=== PATIENT | female | born 1935 | race Caucasian/White ===

== ENCOUNTER 2024-01-16 09:28 | Inpatient (IN) | payer MEDICARE, BC, SELFPAY ==
[2024-01-13] VITALS (11 sets, daily range): BP systolic 122–149; BP diastolic 51–73; PULSE 78; O2SAT 95; BMI 27.0
[2024-01-13 12:23] LABS: % Basophils 0.5 % (0-2); % Eosinophils 1.4 % (0-6); % Immature Granulocytes 0.5 % (0-0.5); % Lymphocytes 16.8 % (20.5-51.1); % Monocytes 7.1 % (1.7-9.3); % Neutrophils 73.7 % (42.2-75.2); Absolute Eosinophils 0.1 10^3/uL (0-0.7); Absolute Lymphocytes 1.1 10^3/uL (1.2-3.4); Absolute Monocytes 0.5 10^3/uL (0.1-0.6); Absolute Neutrophils 4.8 10^3/uL (1.4-6.5); Hematocrit 37.3 % (37.0-47.0); Hemoglobin 12.3 g/dL (12.0-16.0); Mean Corpuscular Volume 106.3 fL (81.0-99.0); Mean Platelet Volume 9.1 fL (7.4-10.4); Nucleated Red Blood Cells % 0 %; Platelet Count 329 10^3/uL (130-400); Red Blood Cell Count 3.51 10^6/uL (4.20-5.40); Red Cell Dist. Width 13.7 % (11.5-14.5); White Blood Cell Count 6.5 10^3/uL (4.8-10.8)
[2024-01-13 12:29] LABS: ALT (SGPT) 14 U/L (0-35); AST (SGOT) 25 U/L (14-36); Albumin 3.2 g/dl (3.5-5.0); Alkaline Phosphatase 129 U/L (38-126); Blood Urea Nitrogen 16 mg/dl (7-17); Calcium 8.7 mg/dl (8.4-10.2); Carbon Dioxide 21 mmol/L (22-30); Chloride 115 mmol/L (98-107); Glucose 124 mg/dl (70-99); Potassium 4.3 mmol/L (3.5-5.1); Sodium 141 mmol/L (135-145); Total Bilirubin 0.4 mg/dl (0.2-1.3); Total Protein 6.1 g/dl (6.3-8.2); eGFR > 60.00
--- NOTE | 2024-01-13 16:29 | CM ---
CM following re: d/c planning.
Pt presents to with ambulatory dysfunction.
Per therapy, recs for SNF.
At this time, pt still in work up : xrays, UA, etc.
CM met with daughter and FLORIN.
Pt resides in the home with them.
They state she has been declining over the years, and requires assistance of 1 with transfers and ADLs.
She was at [facility] 1-2 years ago, they state.
They are interested in SNF placement, likely LTC.
They were advised they will have to complete a LTC application.
If insurance approves rehab, she can start off with rehab, then transition to LTC.
Per daughter, she also has LTC insurance.
As limited clinicals at this time, CM will send refs in the AM.
Daughter is agreeable to referrals to [facility], [facility], [facility], and any local SNFs.
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
CM will continue to follow medical course and assist with disposition.
Pt will be admitted, they were informed she will likely be admitted as OBS, although work up pending for now.
--- NOTE | 2024-01-13 16:45 | ED.GENMED ---
History of Present Illness
General
Chief Complaint: Weakness
Source: patient and family
Exam Limitations: none
Time Seen by Provider: 01/13/24 15:11
Nursing documentation reviewed up to this point in time: agreed with
History of Present Illness
History of Present Illness:
88-year-old female with past medical history of dementia, previous PE currently on Eliquis anxiety depression presenting to the emergency department with concerns of weakness. Has had difficulty ambulation at home. Family 7 difficulty caring for
her at home more recently.
Past History
Past History
ED Past Medical History: HTN and Other
ED Past Surgical History: None
Social History
Tobacco: Non-smoker
Alcohol: Occasional
Personal:
Living: with family (daughter)
Review of Systems
Review of Systems
Allergies reviewed?: Yes
All Other Systems: ROS reviewed and negative except as documented in HPI and ROS
Phy Exam
Physical Exam
Physical Exam:
GENERAL: Alert , in no apparent distress
EYE: pupils equal and reactive
NECK: Supple, no significant adenopathy.
ENT: o/p clr, mmm.
CARDIAC: Regular rate and rhythm .
LUNGS: Clear breath sounds bilaterally, no acute respiratory distress, no wheezes/rales/rhonchi
ABDOMEN: Soft, without focal tenderness, no r/g, no cvat
NEUROLOGICAL: Alert moving all extremities somewhat confused
SKIN: Warm and dry, skin intact.
MUSCULOSKELETAL: No edema, well perfused.
PSYCH: Normal and appropriate interaction.
Course
Orders/Labs/Results
Orders:
Orders
01/13/24 12:01
EKG [Electrocardiogram (*1)] Urgent
Reason for Study: Fatigue / Weakness
01/13/24 12:02
EKG- Treatment ONCE
01/13/24 12:07
CMP [Comprehensive Metabolic Panel] Urgent
Complete Blood Count/With Diff Urgent
01/13/24 15:28
Case Management Consult ONCE
Case Management Consult: Custodial Placement
Urinalysis Reflex To Culture Urgent
Pt Eval And Treat Urgent
Activity Level: Ambulate
01/13/24 15:54
Hips, Bilat 2 View W/AP Pelvis [CR Hips RDAHA w/wo Pel 2 Vw] Urgent
Comment:
Reason For Exam: hip leg pain
Include a pelvis x-ray?: Yes
Knee, Left 4 or More Views [CR Knee - Left 4 Or More View*] Urgent
Comment:
Reason For Exam: knee pain after fall
Knee, Right 4 or More Views [CR Knee- Right 4 Or More View*] Urgent
Comment:
Reason For Exam: knee pain after fall
Abnormal Lab Results
01/13/24
12:07
RBC 3.51 L 10^6/uL
(4.20-5.40)
MCV 106.3 H fL
(81.0-99.0)
MCH 35.0 H pg
(27.0-31.0)
Absolute Lymphs (auto) 1.1 L 10^3/uL
(1.2-3.4)
Lymphocytes % 16.8 L %
(20.5-51.1)
Chloride 115 H mmol/L
(98-107)
Carbon Dioxide 21 L mmol/L
(22-30)
Glucose 124 H mg/dl
(70-99)
Alkaline Phosphatase 129 H U/L
(38-126)
Total Protein 6.1 L g/dl
(6.3-8.2)
Albumin 3.2 L g/dl
(3.5-5.0)
01/13/24 12:07
01/13/24 12:07
Vital Signs
Initial and Last Documented VS:
Initial Vital Signs
Temp Pulse Resp Pulse Ox
98.3 F 102 18 96
01/13/24 12:06 01/13/24 12:06 01/13/24 12:06 01/13/24 12:06
Last Documented Vital Signs
Temp Pulse Resp BP Pulse Ox
98.3 F 81 15 139/73 95
01/13/24 12:06 01/13/24 17:18 01/13/24 12:14 01/13/24 17:18 01/13/24 17:18
MDM/Problems Addressed
MDM/Problems Addressed:
88-year-old female presenting to the emergency department with concerns of worsening generalized weakness fatigue over the past few weeks family is having difficulty caring for her at home considering her increased difficulty with ambulation. Labs
obtained here without significant acute abnormalities. X-rays without emergent findings though there is significant arthritis. Physical therapy saw the patient who had significant difficulty ambulating recommending placement. Patient will be
admitted for further treatment and potential placement.
*Critical Care Note
Total Time (30-74mins, 75-104mins- exclusive of procedures): Not Applicable
ED Attending Note
-
Portions of this chart may have been created with voice recognition software.� Occasional wrong word or��sound alike� substitutions may have occurred due to the inherent limitations of voice recognition software.
Discharge Plan
Departure
Patient Disposition: Admit
Date of Disposition: 01/13/24
Time of Disposition: 18:21
Admit to: Med/Surg
Admit to doctor: Elieser
Presentation/result/management discussed w/ accepting MD/DO: Hospitalist
Patient with high blood pressure during this ER visit?: No
Condition: Good
Covid-19: Not Applicable
Discharge Problem:
Ambulatory dysfunction
Prescriptions:
No Action
ferrous sulfate 325 MG tablet,delayed release (DR/EC)
325 mg PO MOWEFR
pantoprazole 40 MG tablet,delayed release (DR/EC)
40 mg PO BID Qty: 60 0RF
acetaminophen 650 mg Tablet Extended Release
650 mg PO BID
cyanocobalamin (vitamin B-12) [Vitamin B-12] 500 mcg Tablet
500 mcg PO DAILY
calcium carbonate 500 mg calcium (1,250 mg) Tablet
500 mg PO HS
docusate sodium 100 mg Tablet
100 mg PO BID
guaifenesin 400 mg Tablet
400 mg PO BID
Eliquis 5 mg Tablet
5 mg PO BID
ascorbic acid (vitamin C) [Vitamin C] 500 MG tablet
500 mg PO MOWEFR
Rx Instructions:
Take 1,000 mg twice a day for 14 days
baclofen 10 mg Tablet
2.5 mg PO BID Qty: 60 0RF
cephalexin 250 mg capsule
250 mg PO Q8H 7 Days Qty: 21 0RF
Referrals:
Ryan Acharya, DO [Family Provider] -
Interventions
Interventions:
*Risk Screen - Suicide Last Done: 01/13/24 12:04
*General Assessment Last Done: 01/13/24 12:09
*Neglect/Abuse Screening Last Done: 01/13/24 12:04
ED- Fall Risk Assessment Last Done: 01/13/24 12:04
*ED COVID-19 Vaccine History Last Done: 01/13/24 12:09
ED- Cardiac Assessment Last Done: 01/13/24 16:09
ED- Neurological Assessment Last Done: 01/13/24 16:09
ED- Pulmonary Assessment Last Done: 01/13/24 16:09
Discharge Date and Time
Print Language: EMIRATI
--- NOTE | 2024-01-13 18:40 | HPS.HSE ---
Addendum entered and electronically signed by Neeta Hart DO 01/13/24 19:44:
The patient is personally seen and examined. I have discussed the patient with Brooklynn, reviewed her history and physical, and agree with her history and physical and assessment and plan of care as per below. She was lowered to the ground, no acute
injury noted, no LOC, no head injury. Baseline mentation.
VSS, AF
PE: Awake, alert, no focal neurological deficits, Heart is RRR, no m/r/g, Lungs CTA b/l no w/r/r
Awaiting official report for Xray hip and knees
Assessment and plan of care as per below-
Ambulatory dysfunction/FTT
-PT eval
-CM consultation for placement
Original Note:
Family Physician
-
Family Physician: Ryan Acharya
Chief Complaint
-
Weakness
History of Present Illness
Patient is an 88 y/o female past medical history of dementia, pulmonary embolism and hypertension who presents with weakness. Additional history is obtained from patient's daughter. Patient had a incident about a week ago where she nelda as though
she was going to fall and the daughter had to lower her to ground. Patient seemed to be able to baseline, but over the past few days patient has been having trouble ambulating again. Daughter notes they are having to help her get off the toilet.
Patient has been complaining about intermittent knee pain. Family notes they are no longer able to care for patient at home.
Medical History
Past Medical History
Past Medical History: Reports Other
Additional Past Medical History:
Essential Hypertension
Pulmonary Embolism in November 2020
Anemia
GI Bleed
Dementia
Past Surgical History: Reports Other
Additional Past Surgical History:
Hemorrhoidectomy
Social History
Tobacco: Non-smoker
Living: With Family
Family History
Family History: Not pertinent
Allergies / Home Medications
Allergies reflects when Allergies were last updated in [facility].
Home Medications with original date entered in [facility]
Allergy/Medication List:
Allergies
Allergy/AdvReac Type Severity Reaction Status Date / Time
No Known Allergies Allergy Verified 02/05/22 10:29
Home Medications
ferrous sulfate 325 mg (65 mg iron) tablet,delayed release 325 mg PO MOWEFR Supplement 12/02/20
acetaminophen 650 mg tablet,extended release 1,300 mg PO BID Pain 02/05/22
apixaban 5 mg tablet (Eliquis) 2.5 mg PO BID Blood clot prevention/tx 02/05/22
ascorbic acid (vitamin C) 500 mg tablet (Vitamin C) 1,000 mg PO DAILY Supplement 02/05/22
calcium carbonate 500 mg PO HS Supplement 02/05/22
cyanocobalamin (vitamin B-12) 500 mcg tablet (Vitamin B-12) 2,500 mcg PO DAILY Supplement 02/05/22
docusate sodium 100 mg tablet 100 mg PO HS Constipation 02/05/22
baclofen 5 mg tablet 2.5 mg PO BID 01/13/24
glucosamine sulf dipot chlr,msm,chond 550 mg-C 30 mg-layla 1 mg capsule (Glucosamine Chondroitin) 2 cap PO DAILY 01/13/24
pantoprazole 40 mg tablet,delayed release 40 mg PO HS 01/13/24
sertraline 50 mg tablet 50 mg PO HS 01/13/24
zinc sulfate 50 mg zinc (220 mg) tablet 50 mg PO DAILY 01/13/24
Review of Systems
-
Unable to obtain full review of systems at this time due to: Dementia
Physical Exam
Vital Signs
Vital Signs
Temp Pulse Resp BP Pulse Ox
98.3 F 81 15 139/73 95
01/13/24 12:06 01/13/24 17:18 01/13/24 12:14 01/13/24 17:18 01/13/24 17:18
Physical Exam
General: Comfortable and Conversant
HEENT: Anicteric and Moist mucous membranes
Respiratory: Clear and Non Labored Respirations
Cardiac: S1/S2 and Regular Rhythm
GI: Soft and Non Tender
Rectal: Deferred by Provider
Musculoskeletal: No Clubbing, No Cyanosis and No Edema
Skin: Warm and Dry
Neuro: Awake, Alert and Nonfocal/grossly intact
Psych: Calm
Laboratory Results
-
01/13/24 12:07
01/13/24 12:07
Laboratory Results
Total Bilirubin 0.4 mg/dl (0.2-1.3) 01/13/24 12:07
AST 25 U/L (14-36) 01/13/24 12:07
ALT 14 U/L (0-35) 01/13/24 12:07
Alkaline Phosphatase 129 U/L (38-126) H 01/13/24 12:07
Data Reviewed
-
Diagnostic Radiology: Image Personally Visualized and interpreted (Bilateral Knee and Hip X-Rays show extensive arthritis, official reports are still pending)
Lab Data: Labs Reviewed by me
Impression/Plan
-
Ambulatory Dysfunction
-Consult PT/OT
-Patient will likely require placement in SNF for short term rehab and possible transition to LTC
Constipation
-Increase bowel regimen Senna-S 2 tabs BID
Anxiety
-Daughter reports increasing anxiety recently. Patient previously started on sertraline with initial improved, and daughter is asking if dose can be increased
-Increase sertraline 75mg Daily
Hx Pulmonary Embolism in November 2020
-Continue Eliquis
Anemia
-Hgb within normal range
-Continue vitamin b12 and ferrous sulfate
Hx GI Bleed
-Continue Protonix
DVT Proph: Eliquis
Code Status: DNR confirmed with patient's daughter at time of admission
--- NOTE | 2024-01-13 20:29 | PTCARENOTE ---
Receive pt from ER. Pt alert oriented 3, but forgetful. Pt pulled over from the stretcher to her bed. Pt screams when touched or turned, otherwise cooperative. Pt oriented to the room, call calixto within reach. VSS (T=98, HR=86, RR=20, RP=626/67,
SpO2=96% on RA). Pt presents with 2 open wouds to her B/L groins area. Pt denies pain, but admits to weakness to B/L legs. Pt repositioned and resting comfortably in her bed.
[2024-01-13] MEDS: LIORESAL 2.5 MG PO (21:33)
[2024-01-13] MEDS: TYLENOL 650 MG PO (21:34)
[2024-01-13] MEDS: SENOKOT-S 2 TABLET PO (21:34)
[2024-01-13] MEDS: ZOLOFT 75 MG PO (21:35)
[2024-01-13] MEDS: OSCAL CAL 500 500 MG PO (21:35)
[2024-01-13] MEDS: PROTONIX 40 MG PO (21:35)
[2024-01-13] MEDS: ELIQUIS 2.5 MG PO (21:39)
[2024-01-14] MEDS: TYLENOL PO ×2 (02:20→19:51)
[2024-01-14 07:40] VITALS: BP 140/60
[2024-01-14] MEDS: ZINC SULFATE 220 MG PO (09:31)
[2024-01-14] MEDS: SENOKOT-S 2 TABLET PO (09:31)
[2024-01-14] MEDS: VITAMIN C 1000 MG PO (09:32)
[2024-01-14] MEDS: ELIQUIS 2.5 MG PO ×2 (09:32→19:52)
[2024-01-14] MEDS: FEOSOL 325 MG PO (09:32)
[2024-01-14] MEDS: LIORESAL 2.5 MG PO ×2 (09:32→19:52)
[2024-01-14] MEDS: VITAMIN B-12 2500 MCG PO (09:32)
[2024-01-14] MEDS: TYLENOL 650 MG PO ×2 (09:32→14:08)
[2024-01-14 10:15] VITALS: BP 132/73; PULSE 89; O2SAT 96
--- NOTE | 2024-01-14 11:00 | CM ---
CM received consult for discharge planning. CM spoke with Valery from [facility], confirmed patient qualifies for [facility] waiver program. CM spoke with patients daughter, Fadumo, over the phone. Fadumo reports patient resides with her and her , Lynn
sister also provided support to patient. Fadumo reports patient was able to ambulate with walker, as of lately patient only able to feed self, otherwise Fadumo does everything for patient. Fadumo reports patient will likely need LTC after rehab, CM
discussed patient qualifies for MSS program , certain SNF accept this program, will send referrals in [facility]. CM discussed facilities will likely need to see LTC application, daughter aware. Daughter reports she works at at the Pharmacy.
Daughter reports they would like a facility closer to [place], report patient has been to [facility] in past. CM discussed HOBBS with daughter, daughter aware of observation status, documented and placed in patients chart. Daughter confirmed
patient PCP Ryan Wong, [facility] in [place]. CM will continue to follow for all discharge planning needs.
Plan; SNF/LTC, pending accepting facility.
[2024-01-14 11:14] VITALS: BP 140/73; PULSE 91; O2SAT 94
[2024-01-14 13:32] LABS: Urine Albumin Trace (Neg - Trace); Urine Bilirubin 1+ (Negative); Urine Character Very Cloudy (Clear); Urine Color Brown; Urine Glucose Negative (Negative); Urine Ketone Trace (Negative); Urine Leukocyte 2+ (Negative); Urine Nitrite Positive (Negative); Urine Occult Blood 3+ (Negative); Urine Urobilinogen 4+ (Neg - 1+)
[2024-01-14 13:49] LABS: Urine Bacteria Many (Negative); Urine White Cell 26-30 /HPF (0-5)
--- NOTE | 2024-01-14 15:36 | WOUNDNOTE ---
R PLANTAR 1ST MTH
--- NOTE | 2024-01-14 15:39 | WOUNDNOTE ---
WO RN note: Patient admitted with ambulation dysfunction. Patient's family unable to care for patient. SNF placement planned.
See H&P for complete history.
PMH: dementia, PE (Eliquis), HTN, GI bleed, constipation, ambulation dysfunction, obesity.
Wound Location and type/assessment: Patient admitted with: R plantar 1st MTH black callus. Sacral small stage 2 sacral pressure injury. Buttocks santos discolored dull red/purple (blanchable). Bilateral groin deep dermal vs to subcutaneous ulcers d/t
moisture.
Appetite: fair-good.
Pressure redistribution devices in place: [employer] air bed. Patient cannot turn self in bed.
Plan: Patient incontinent of urine. Santos care and patient turned to R semi side lying position with help from TABBY Barney. Heels off bed with pillow. Silicone border foam changed on sacrum. Local care given bilateral groin wounds.
Will confirm orders with Dr. North and updated CECILIA Costa.
Care plan to be updated and will follow as needed.
Note to case management of equipment requested for discharge: Air mattress recommended at SNF.
Recommend follow up at wound care center upon discharge.
[2024-01-14 15:40] VITALS: BP 122/57
--- NOTE | 2024-01-14 15:40 | WOUNDNOTE ---
WO RN note: Patient admitted with ambulation dysfunction. Patient's family unable to care for patient. SNF placement planned.
See H&P for complete history.
PMH: dementia, PE (Eliquis), HTN, GI bleed, constipation, ambulation dysfunction, obesity.
Wound Location and type/assessment: Patient admitted with: R plantar 1st MTH black callus. Sacral small stage 2 sacral pressure injury. Buttocks santos discolored dull red/purple (blanchable). Bilateral groin deep dermal vs to subcutaneous ulcers d/t
moisture.
Appetite: fair-good.
Pressure redistribution devices in place: [employer] air bed. Patient cannot turn self in bed.
Plan: Patient incontinent of urine. Santos care and patient turned to R semi side lying position with help from MARIBELL Kc. Heels off bed with pillow. Silicone border foam changed on sacrum. Local care given bilateral groin wounds.
Will confirm orders with Dr. North and updated CECILIA Costa.
Care plan to be updated and will follow as needed.
Note to case management of equipment requested for discharge: Air mattress recommended at SNF.
Recommend follow up at wound care center upon discharge.
--- NOTE | 2024-01-14 16:46 | W.PN.HOSP.TC ---
Today's Communication/Plan
-
start Rocephin
Assessment / Plan
Assessment / Plan
Ambulatory Dysfunction
-Consult PT/OT
-Patient will likely require placement in SNF for short term rehab and possible transition to LTC
Remains weak
UTI
UA changes are consistent with UTI and could be a major contributor for patient's overwhelming weakness, even with nl WBC
will start Rocephin pending Ur C&S
Constipation
-Increase bowel regimen Senna-S 2 tabs BID
Anxiety
-Daughter reports increasing anxiety recently. Patient previously started on sertraline with initial improved, and daughter is asking if dose can be increased
-Increase sertraline 75mg Daily
Hx Pulmonary Embolism in November 2020
-Continue Eliquis
Anemia
-Hgb within normal range
-Continue vitamin b12 and ferrous sulfate
Hx GI Bleed
-Continue Protonix
DVT Proph: Eliquis
Code Status: DNR confirmed with patient's daughter at time of admission
With probable UTI and metabolic changes (profound weakness, will change to full admit)
Anticipated Discharge: > 48 hours
Subjective/Interval History
-
Date of Service: January 14, 2024
Remains weak
Objective Data
-
Vital Signs:
Vital Signs
Temp Pulse Resp BP Pulse Ox
98.7 F 94 20 122/57 96
01/14/24 15:40 01/14/24 15:40 01/14/24 15:40 01/14/24 15:40 01/14/24 15:40
Review of Systems
-
History Source: Patient
Constitutional: Reports No Symptoms; Denies Fever
Respiratory: Reports No Symptoms
Cardiac: Reports No Symptoms
Abdomen/GI: Reports No Symptoms
Genitourinary: Reports No Symptoms
Musculoskeletal: Reports Arthralgias
Skin: Reports Rash (cellulitis much improved)
Neuro: Reports No Symptoms
Physical Exam
-
General: Well Developed, Well Nourished, No Apparent Distress and Appears Chronically Ill
HEENT: Normocephalic, Atraumatic and Moist Mucous Membranes
Respiratory: Clear to Auscultation; Negative Wheezes, Rales or Rhonchi
Cardiac: Regular Rhythm and S1/S2
GI: Soft, Nontender and Nondistended
Musculoskeletal: No Clubbing, No Cyanosis, No Edema and Other (left leg retraction less pronounced)
Skin: Rash (cellulitis improved)
Neuro: Awake and Alert
Psych: Calm
[2024-01-14] MEDS: ROCEPHIN 1000 MG IV (17:57)
[2024-01-14] MEDS: STERILE WATER FOR INJECTION 10 ML IV (17:57)
[2024-01-14] MEDS: ANTIFUNGAL CLEAR 1 APPLIC TOPICAL (19:51)
[2024-01-14] MEDS: SENOKOT-S PO (19:53)
[2024-01-14] MEDS: OSCAL CAL 500 500 MG PO (21:39)
[2024-01-14] MEDS: ZOLOFT 75 MG PO (21:39)
[2024-01-14] MEDS: PROTONIX 40 MG PO (21:39)
[2024-01-14 23:22] VITALS: BP 138/74
[2024-01-15] MEDS: TYLENOL PO (02:31)
[2024-01-15 07:00] VITALS: BP 159/79
--- NOTE | 2024-01-15 07:34 | W.PN.HOSP.TC ---
Today's Communication/Plan
-
PT OT. Antibiotics. Discharge planning in progress
Assessment / Plan
Assessment / Plan
Physical exam:
General: Appears chronically ill.
HEENT: Normocephalic, Atraumatic and Moist Mucous Membranes
Respiratory: Clear to Auscultation; Negative Wheezes, Rales or Rhonchi
Cardiac: Regular Rhythm and S1/S2, no murmurs rubs or gallops
GI: Soft, Nontender and Nondistended
Musculoskeletal: Decreased range of motion of both knees but no warmth erythema. Mild tenderness on her right knee. No tenderness in both hips area. No Clubbing, No Cyanosis. Mild edema in lower extremities
Neuro: Awake, Alert and Oriented, no neurological deficits, generalized weakness present.
Psych: Calm
A/P:
Ambulatory Dysfunction
-Suspect some degree of osteoarthritis contributing to her ambulatory dysfunction
-CT of the head unremarkable as well as knee x-ray and hip x-ray although findings of OA.
-Consult PT/OT and PT recommended long-term care and OT recommended skilled rehab.
-Patient will likely require placement in SNF for short term rehab and possible transition to LTC
Remains weak
-Physician advisor reviewing her case to see if she qualifies for inpatient
-Case management for discharge disposition
Probable UTI:
UA is abnormal but unclear if symptomatic and how much contributing quite frankly.
Continue with IV Rocephin and follow-up cultures-culture results pending
Normal WBC and afebrile so far
Constipation
-Continue increased bowel regimen Senna-S 2 tabs BID
Anxiety
-Daughter reports increasing anxiety recently. Patient previously started on sertraline with initial improved, and daughter is asking if dose can be increased to Dr. North and he increased doses as below.
-Increased sertraline 75mg Daily
Hx Pulmonary Embolism in November 2020
-Continue Eliquis
Anemia
-Hgb within normal range--> latest hemoglobin 11.3
-Continue vitamin b12 and ferrous sulfate
Hx GI Bleed
-Continue Protonix
DVT Proph: Eliquis
Code Status: DNR
Anticipated Discharge: 24 - 48 hours
Subjective/Interval History
-
Date of Service: January 15, 2024
Patient with generalized weakness and pain in bilateral knees. No erythema on her knees. Afebrile.
Objective Data
-
Labs:
Laboratory Results
01/15/24
06:00
WBC Pending
Hgb Pending
Hct Pending
Plt Count Pending
Sodium Pending
Potassium Pending
Chloride Pending
Carbon Dioxide Pending
BUN Pending
Creatinine Pending
Glucose Pending
Calcium Pending
Vital Signs:
Vital Signs
Temp Pulse Resp BP Pulse Ox
97.9 F 90 18 138/74 96
01/14/24 23:22 01/14/24 23:22 01/14/24 23:22 01/14/24 23:22 01/14/24 23:22
I&O
01/14/24 01/15/24 01/16/24
06:59 06:59 06:59
Intake Total 120 / 120
Balance 120 / 120
[2024-01-15 09:07] LABS: % Basophils 0.4 % (0-2); % Eosinophils 2.1 % (0-6); % Immature Granulocytes 0.4 % (0-0.5); % Lymphocytes 22.5 % (20.5-51.1); % Monocytes 8.6 % (1.7-9.3); Absolute Eosinophils 0.1 10^3/uL (0-0.7); Absolute Lymphocytes 1.2 10^3/uL (1.2-3.4); Absolute Monocytes 0.5 10^3/uL (0.1-0.6); Absolute Neutrophils 3.5 10^3/uL (1.4-6.5); Hematocrit 33.3 % (37.0-47.0); Hemoglobin 11.3 g/dL (12.0-16.0); Mean Corp Hgb Conc. 33.9 g/dL (33.0-37.0); Mean Corpuscular Hgb 34.8 pg (27.0-31.0); Mean Corpuscular Volume 102.5 fL (81.0-99.0); Mean Platelet Volume 9.2 fL (7.4-10.4); Nucleated Red Blood Cells % 0 %; Platelet Count 297 10^3/uL (130-400); Red Blood Cell Count 3.25 10^6/uL (4.20-5.40); Red Cell Dist. Width 13.1 % (11.5-14.5); White Blood Cell Count 5.2 10^3/uL (4.8-10.8)
[2024-01-15 09:25] LABS: Blood Urea Nitrogen 11 mg/dl (7-17); Calcium 8.5 mg/dl (8.4-10.2); Carbon Dioxide 22 mmol/L (22-30); Chloride 114 mmol/L (98-107); Estimated Creatinine Clearance 43 ml/min; Glucose 93 mg/dl (70-99); Potassium 3.6 mmol/L (3.5-5.1); Sodium 141 mmol/L (135-145); eGFR > 60.00
[2024-01-15] MEDS: SENOKOT-S 2 TABLET PO ×2 (09:48→20:29)
[2024-01-15] MEDS: ANTIFUNGAL CLEAR 1 APPLIC TOPICAL ×2 (09:48→20:28)
[2024-01-15] MEDS: VITAMIN C 1000 MG PO (09:49)
[2024-01-15] MEDS: VITAMIN B-12 2500 MCG PO (09:49)
[2024-01-15] MEDS: ELIQUIS 2.5 MG PO ×2 (09:50→20:29)
[2024-01-15] MEDS: TYLENOL 650 MG PO ×3 (09:50→20:30)
[2024-01-15] MEDS: LIORESAL 2.5 MG PO ×2 (09:50→20:29)
[2024-01-15] MEDS: ZINC SULFATE 220 MG PO (09:51)
[2024-01-15 15:43] VITALS: BP 156/77
--- NOTE | 2024-01-15 16:10 | PTCARENOTE ---
Pt awake and alert, oriented to self/place/birthdate; confused conversation at times/forgetful; [place]. Pleasant and cooperative. [place]; legs weak; does not assist with positioning. Occ tremors of arms/lower face noted. VSS. On room air- pulse ox
96%, no c/o SOB. Abd obese, soft, faheem PO; appetite poor; incont loose brown/green stool; Dr. Connors aware. Incont large amts urine. Bilat groin dsgs/[place] ointment intact. Resting in bed at present; no c/o. Will continue to monitor
[2024-01-15] MEDS: STERILE WATER FOR INJECTION 10 ML IV (17:38)
[2024-01-15] MEDS: ROCEPHIN 1000 MG IV (17:39)
[2024-01-15] MEDS: PROTONIX 40 MG PO (21:51)
[2024-01-15] MEDS: OSCAL CAL 500 500 MG PO (21:51)
[2024-01-15] MEDS: ZOLOFT 75 MG PO (21:51)
[2024-01-15 23:29] VITALS: BP 115/55
[2024-01-16] MEDS: TYLENOL 650 MG PO ×3 (03:07→20:21)
[2024-01-16 07:49] VITALS: BP 126/64
[2024-01-16] MEDS: SENOKOT-S 2 TABLET PO ×2 (08:53→20:22)
[2024-01-16] MEDS: FEOSOL 325 MG PO (08:53)
[2024-01-16] MEDS: ZINC SULFATE 220 MG PO (08:53)
[2024-01-16] MEDS: VITAMIN B-12 2500 MCG PO (08:53)
[2024-01-16] MEDS: LIORESAL 2.5 MG PO ×2 (08:53→20:21)
[2024-01-16] MEDS: ELIQUIS 2.5 MG PO ×2 (08:53→20:22)
[2024-01-16] MEDS: VITAMIN C 1000 MG PO (08:54)
[2024-01-16] MEDS: ANTIFUNGAL CLEAR 1 APPLIC TOPICAL ×2 (09:01→20:23)
--- NOTE | 2024-01-16 11:48 | W.PN.HOSP.TC ---
Today's Communication/Plan
-
Monitor vitals
see plan
Pain control
Change antibiotic to cefdinir for 1 more day
PT/OT
trial of lidocaine cream
Discussed with daughter over the phone
Discharge planning
Assessment / Plan
Assessment / Plan
Physical exam:
General: Appears chronically ill.
HEENT: Normocephalic, Atraumatic and Moist Mucous Membranes
Respiratory: Clear to Auscultation; Negative Wheezes, Rales or Rhonchi
Cardiac: Regular Rhythm and S1/S2, no murmurs rubs or gallops
GI: Soft, Nontender and Nondistended
Musculoskeletal: Decreased range of motion of both knees but no warmth erythema. Mild tenderness on her right knee. No tenderness in both hips area. No Clubbing, No Cyanosis. Mild edema in lower extremities
Neuro: Awake, Alert and Oriented, no neurological deficits, generalized weakness present.
Psych: Calm
A/P:
Ambulatory Dysfunction
-Suspect some degree of osteoarthritis contributing to her ambulatory dysfunction
-CT of the head unremarkable as well as knee x-ray and hip x-ray although findings of OA.
-Consult PT/OT and PT recommended long-term care and OT recommended skilled rehab.
-Patient will likely require placement in SNF for short term rehab and possible transition to LTC
Remains weak
-Case management for discharge disposition
mild hospital-acquired delirium
Monitor; improving
Probable UTI:
UA is abnormal; will treat for total 3 days
change to cefdinir for 1 day
was on rocephin
Constipation
-Continue increased bowel regimen Senna-S 2 tabs BID
Anxiety
-Daughter reports increasing anxiety recently. Patient previously started on sertraline with initial improved, and daughter is asking if dose can be increased to Dr. North and he increased doses as below.
-Increased sertraline 75mg Daily
Hx Pulmonary Embolism in November 2020
-Continue Eliquis
Anemia
-Hgb within normal range
-Continue vitamin b12 and ferrous sulfate
Hx GI Bleed
-Continue Protonix
DVT Proph: Eliquis
Code Status: DNR
PT/OT rec SNF
Anticipated Discharge: Today
Subjective/Interval History
-
Date of Service: January 16, 2024
denies nausea
Objective Data
-
Vital Signs:
Vital Signs
Temp Pulse Resp BP Pulse Ox
97.7 F 94 20 126/64 95
01/16/24 07:49 01/16/24 07:49 01/16/24 07:49 01/16/24 07:49 01/16/24 08:30
I&O
01/15/24 01/16/24 01/17/24
06:59 06:59 06:59
Intake Total 120 / 120 720 / 720
Balance 120 / 120 720 / 720
[2024-01-16] MEDS: LMX 4 1 APPLIC TOPICAL (12:56)
[2024-01-16] MEDS: OMNICEF 300 MG PO ×2 (12:59→20:22)
[2024-01-16] MEDS: TYLENOL PO (13:09)
--- NOTE | 2024-01-16 14:31 | CM ---
CM spoke with patients daughter, Fadumo, discussed patient switched to inpatient status. CM discussed patient medically stable for discharge, daughter looking into [facility] and [facility], [facility] no longer has a bed.
Patient qualifies for [facility] waiver program. CM awaiting return call from daughter regarding SNF. CM will continue to follow for all discharge planning needs.
Plan; SNF pending accepting facility.
[2024-01-16 15:13] VITALS: BP 104/67
--- NOTE | 2024-01-16 16:11 | WOUNDNOTE ---
WOC RN note: nato Real re: recommend air mattress at SNF. She has a small stage 2 sacral pressure injury.
[2024-01-16] MEDS: ZOLOFT 75 MG PO (20:21)
[2024-01-16] MEDS: OSCAL CAL 500 500 MG PO (20:21)
[2024-01-16] MEDS: PROTONIX 40 MG PO (20:21)
[2024-01-16 23:56] VITALS: BP 128/70
[2024-01-17] MEDS: TYLENOL 650 MG PO ×4 (01:38→20:17)
[2024-01-17 07:50] VITALS: BP 132/70
[2024-01-17 08:07] LABS: % Basophils 0.4 % (0-2); % Eosinophils 2.8 % (0-6); % Immature Granulocytes 0.2 % (0-0.5); % Lymphocytes 30.2 % (20.5-51.1); % Monocytes 9.2 % (1.7-9.3); % Neutrophils 57.2 % (42.2-75.2); Absolute Eosinophils 0.1 10^3/uL (0-0.7); Absolute Lymphocytes 1.4 10^3/uL (1.2-3.4); Absolute Monocytes 0.4 10^3/uL (0.1-0.6); Absolute Neutrophils 2.7 10^3/uL (1.4-6.5); Hematocrit 32.4 % (37.0-47.0); Hemoglobin 10.9 g/dL (12.0-16.0); Mean Corp Hgb Conc. 33.6 g/dL (33.0-37.0); Mean Corpuscular Hgb 35.2 pg (27.0-31.0); Mean Corpuscular Volume 104.5 fL (81.0-99.0); Mean Platelet Volume 9.1 fL (7.4-10.4); Nucleated Red Blood Cells % 0 %; Platelet Count 271 10^3/uL (130-400); Red Cell Dist. Width 13.4 % (11.5-14.5); White Blood Cell Count 4.7 10^3/uL (4.8-10.8)
[2024-01-17 08:30] LABS: Blood Urea Nitrogen 16 mg/dl (7-17); Calcium 8.3 mg/dl (8.4-10.2); Carbon Dioxide 25 mmol/L (22-30); Chloride 113 mmol/L (98-107); Estimated Creatinine Clearance 43 ml/min; Glucose 88 mg/dl (70-99); Potassium 3.5 mmol/L (3.5-5.1); Sodium 141 mmol/L (135-145); eGFR > 60.00
[2024-01-17] MEDS: VITAMIN B-12 2500 MCG PO (08:43)
[2024-01-17] MEDS: ELIQUIS 2.5 MG PO ×2 (08:44→20:16)
[2024-01-17] MEDS: SENOKOT-S 2 TABLET PO (08:44)
[2024-01-17] MEDS: ZINC SULFATE 220 MG PO (08:44)
[2024-01-17] MEDS: VITAMIN C 1000 MG PO (08:45)
[2024-01-17] MEDS: LIORESAL 2.5 MG PO ×2 (08:45→20:16)
[2024-01-17] MEDS: ANTIFUNGAL CLEAR 1 APPLIC TOPICAL ×2 (08:48→20:16)
--- NOTE | 2024-01-17 10:54 | PN.CDI ---
CDI
- -
CDI:
Physician Documentation Request
Admit Date: 01/16/24 09:28
Dear Doctor Bryn,
Patient admitted with ambulatory dysfunction.
01/13 Wound care note: 'Sacral small stage 2 sacral pressure injury. '
Physician documentation of the type and location of wounds is required for compliant documentation. Based on the above clinical findings and your assessment, please provide the following in your progress note:
1. Location of the ulcer/wound, including laterality.
2. Type (etiology) of ulcer/wound:
- Diabetic ulcer
- Arterial (ischemic) ulcer
- Traumatic wound
- Venous stasis ulcer
- Pressure (decubitus) ulcer
- Non-healing surgical wound
- Other
- Unable to determine
3. For a non-pressure ulcer, please indicate the depth/severity:
- Limited to the breakdown of skin
- With fat layer exposed
- With necrosis of muscle
- With necrosis of bone
- Other
- Unable to determine
4. If a pressure ulcer, please also include the stage* of the ulcer:
- Stage 1 - Skin intact, non-blanchable redness
- Stage 2 - Partial thickness loss of dermis, includes intact or open blister
- Stage 3 - Full thickness tissue not including bone, tendon or muscle
- Stage 4 - Full thickness tissue loss, including exposed bone, tendon or muscle
- Unstageable - Full thickness loss in which the base of the ulcer is covered by slough (yellow, ji, alberto, green or brown) and/or eschar (ji, brown or black) in the wound bed.
- Unable to determine
Use of terms such as suspected, likely, concern for, or probable (associated with a specific diagnosis that is being evaluated, monitored, or treated as if it exists) are acceptable and can be coded in the inpatient setting, when documented at the
time of discharge.
Thank you,
Madeline Sanders RN, BSN
CDI Specialist
Available via [place] text
Please use your independent medical judgment in providing your response.
*Source: National Pressure Ulcer Advisory Panel (NPUAP)
--- NOTE | 2024-01-17 12:09 | W.PN.HOSP.TC ---
Addendum entered and electronically signed by George Clemente MD 01/17/24 12:20:
Sacral small stage 2 sacral pressure injury
Original Note:
Today's Communication/Plan
-
monitor vitals
see plan
cw lidocaine cream
finished abx
dc planning
discussed with daughter over the phone
Assessment / Plan
Assessment / Plan
Physical exam:
General: Appears chronically ill.
HEENT: Normocephalic, Atraumatic and Moist Mucous Membranes
Respiratory: Clear to Auscultation; Negative Wheezes, Rales or Rhonchi
Cardiac: Regular Rhythm and S1/S2, no murmurs rubs or gallops
GI: Soft, Nontender and Nondistended
Musculoskeletal: Decreased range of motion of both knees but no warmth erythema. Mild tenderness on her right knee. No tenderness in both hips area. No Clubbing, No Cyanosis. Mild edema in lower extremities
Neuro: Awake, Alert and Oriented, no neurological deficits, generalized weakness present.
Psych: Calm
A/P:
Ambulatory Dysfunction
-Suspect some degree of osteoarthritis contributing to her ambulatory dysfunction
-CT of the head unremarkable as well as knee x-ray and hip x-ray although findings of OA.
-Consult PT/OT and PT recommended long-term care and OT recommended skilled rehab.
-Patient will likely require placement in SNF for short term rehab and possible transition to LTC
Remains weak
-Case management for discharge disposition
apply lidocaine cream on both knees for OA
mild hospital-acquired delirium
Monitor; improving
Probable UTI:
UA is abnormal; will treat for total 3 days
finished abx
Constipation
-Continue increased bowel regimen Senna-S 2 tabs BID
Anxiety
-Daughter reports increasing anxiety recently. Patient previously started on sertraline with initial improved, and daughter is asking if dose can be increased to Dr. North and he increased doses as below.
-Increased sertraline 75mg Daily
Hx Pulmonary Embolism in November 2020
-Continue Eliquis
Anemia
-Hgb within normal range
-Continue vitamin b12 and ferrous sulfate
Hx GI Bleed
-Continue Protonix
DVT Proph: Eliquis
Code Status: DNR
PT/OT rec SNF
Anticipated Discharge: Within 24 hours
Subjective/Interval History
-
Date of Service: January 17, 2024
denies nausea
Objective Data
-
Labs:
Laboratory Results
01/17/24
07:48
WBC 4.7 L
Hgb 10.9 L
Hct 32.4 L
Plt Count 271
Sodium 141
Potassium 3.5
Chloride 113 H
Carbon Dioxide 25
BUN 16
Creatinine 0.8
Glucose 88
Calcium 8.3 L
Vital Signs:
Vital Signs
Temp Pulse Resp BP Pulse Ox
98.3 F 85 20 132/70 95
01/17/24 07:50 01/17/24 07:50 01/17/24 07:50 01/17/24 07:50 01/17/24 07:50
I&O
01/16/24 01/17/24 01/18/24
06:59 06:59 06:59
Intake Total 720 / 720 960 / 960
Balance 720 / 720 960 / 960
[2024-01-17] MEDS: LMX 4 1 APPLIC TOPICAL (13:11)
--- NOTE | 2024-01-17 15:00 | CM ---
CM spoke with patients daughters Fadumo and Sindy, discussed [facility] no longer has a bed, only accepting facility is [facility]. Family not agreeable to [facility] at this time. CM discussed option to private pay at facilities not
participating in [facility] waiver program. Family inquiring if [facility] can accept patient for SNF under secondary insurance. CM spoke with Deb at [facility], unable to accept through secondary insurance. CM discussed option to transfer to another
facility once bed opens up. CM reached out to [facility], no beds today and no beds likely through weekend. FERMIN spoke with [facility] packaging sales representative, Valery, Valery spoke with family, will reach out to [facility] SNF to see if any beds have opened up at
participating facilities. CM will continue to follow for all discharge planning needs.
Plan; SNF pending accepting facility.
[2024-01-17 15:55] VITALS: BP 131/72
[2024-01-17 15:59] VITALS: BP 128/77; PULSE 89; O2SAT 95
[2024-01-17] MEDS: SENOKOT-S PO (20:17)
[2024-01-17] MEDS: OSCAL CAL 500 500 MG PO (20:17)
[2024-01-17] MEDS: PROTONIX 40 MG PO (20:17)
[2024-01-17] MEDS: ZOLOFT 75 MG PO (20:17)
[2024-01-17 23:40] VITALS: BP 140/69
[2024-01-18] MEDS: TYLENOL 650 MG PO ×3 (01:52→14:00)
[2024-01-18 08:00] VITALS: BP 130/70
[2024-01-18 08:20] LABS: % Basophils 0.4 % (0-2); % Eosinophils 4.3 % (0-6); % Immature Granulocytes 0.4 % (0-0.5); % Monocytes 9.3 % (1.7-9.3); % Neutrophils 62.6 % (42.2-75.2); Absolute Eosinophils 0.2 10^3/uL (0-0.7); Absolute Lymphocytes 1.2 10^3/uL (1.2-3.4); Absolute Monocytes 0.5 10^3/uL (0.1-0.6); Absolute Neutrophils 3.2 10^3/uL (1.4-6.5); Hematocrit 33.3 % (37.0-47.0); Hemoglobin 11.5 g/dL (12.0-16.0); Mean Corp Hgb Conc. 34.5 g/dL (33.0-37.0); Mean Corpuscular Hgb 36.1 pg (27.0-31.0); Mean Corpuscular Volume 104.4 fL (81.0-99.0); Mean Platelet Volume 9.2 fL (7.4-10.4); Nucleated Red Blood Cells % 0 %; Platelet Count 275 10^3/uL (130-400); Red Blood Cell Count 3.19 10^6/uL (4.20-5.40); Red Cell Dist. Width 13.2 % (11.5-14.5); White Blood Cell Count 5.1 10^3/uL (4.8-10.8)
[2024-01-18 09:06] LABS: Blood Urea Nitrogen 16 mg/dl (7-17); Calcium 8.2 mg/dl (8.4-10.2); Carbon Dioxide 25 mmol/L (22-30); Chloride 113 mmol/L (98-107); Estimated Creatinine Clearance 38 ml/min; Glucose 84 mg/dl (70-99); Potassium 3.8 mmol/L (3.5-5.1); Sodium 141 mmol/L (135-145); eGFR > 60.00
[2024-01-18] MEDS: SENOKOT-S PO (09:23)
[2024-01-18] MEDS: VITAMIN C 1000 MG PO (09:23)
[2024-01-18] MEDS: ZINC SULFATE 220 MG PO (09:24)
[2024-01-18] MEDS: VITAMIN B-12 2500 MCG PO (09:24)
[2024-01-18] MEDS: LIORESAL 2.5 MG PO (09:24)
[2024-01-18] MEDS: FEOSOL 325 MG PO (09:25)
[2024-01-18] MEDS: ELIQUIS 2.5 MG PO (09:25)
[2024-01-18] MEDS: ANTIFUNGAL CLEAR 1 APPLIC TOPICAL (09:29)
--- NOTE | 2024-01-18 11:13 | W.PN.HOSP.TC ---
Addendum entered and electronically signed by George Clemente MD 01/18/24 12:55:
Time of discharge 36 minutes
Original Note:
Today's Communication/Plan
-
monitor vitals
see plan
Disposition efforts ongoing
SNF versus long-term
lidocaine cream
Assessment / Plan
Assessment / Plan
Physical exam:
General: Appears chronically ill.
HEENT: Normocephalic, Atraumatic and Moist Mucous Membranes
Respiratory: Clear to Auscultation; Negative Wheezes, Rales or Rhonchi
Cardiac: Regular Rhythm and S1/S2, no murmurs rubs or gallops
GI: Soft, Nontender and Nondistended
Musculoskeletal: Decreased range of motion of both knees but no warmth erythema. Mild tenderness on her right knee. No tenderness in both hips area. No Clubbing, No Cyanosis. Mild edema in lower extremities
Neuro: Awake, Alert and Oriented, no neurological deficits, generalized weakness present.
Psych: Calm
A/P:
Ambulatory Dysfunction
-Suspect some degree of osteoarthritis contributing to her ambulatory dysfunction
-CT of the head unremarkable as well as knee x-ray and hip x-ray although findings of OA.
-Consult PT/OT and PT recommended long-term care and OT recommended skilled rehab.
-Patient will likely require placement in SNF for short term rehab and possible transition to LTC
Remains weak. does not appear to feel she needs to participate with PT. advised her to not refuse PT
-Case management for discharge disposition
apply lidocaine cream on both knees for OA
mild hospital-acquired delirium
Monitor; improving
Probable UTI:
UA is abnormal; will treat for total 3 days
finished abx
Constipation
-Continue increased bowel regimen Senna-S 2 tabs BID
Anxiety
-Daughter reports increasing anxiety recently. Patient previously started on sertraline with initial improved, and daughter is asking if dose can be increased to Dr. North and he increased doses as below.
-Increased sertraline 75mg Daily
Hx Pulmonary Embolism in November 2020
-Continue Eliquis
Sacral small stage 2 sacral pressure injury
Anemia, unknown etiology
-Hgb within normal range
-Continue vitamin b12 and ferrous sulfate
Hx GI Bleed
-Continue Protonix
DVT Proph: Eliquis
Code Status: DNR
PT/OT
Anticipated Discharge: Within 24 hours
Subjective/Interval History
-
Date of Service: January 18, 2024
denies nausea
Objective Data
-
Labs:
Laboratory Results
01/18/24
07:41
WBC 5.1
Hgb 11.5 L
Hct 33.3 L
Plt Count 275
Sodium 141
Potassium 3.8
Chloride 113 H
Carbon Dioxide 25
BUN 16
Creatinine 0.9
Glucose 84
Calcium 8.2 L
Vital Signs:
Vital Signs
Temp Pulse Resp BP Pulse Ox
98.2 F 81 20 130/70 94
01/18/24 08:00 01/18/24 08:00 01/18/24 08:00 01/18/24 08:00 01/18/24 08:00
I&O
01/17/24 01/18/24 01/19/24
06:59 06:59 06:59
Intake Total 960 / 960 300 / 300
Balance 960 / 960 300 / 300
[2024-01-18] MEDS: LMX 4 1 APPLIC TOPICAL (11:30)
[2024-01-18 11:34] VITALS: BP 141/68; PULSE 88
[2024-01-18 11:35] VITALS: BP 141/68; PULSE 91; O2SAT 96
--- NOTE | 2024-01-18 12:55 | W.DCSUMMARY ---
Discharge Summary
Discharge Data
Date of Admission: 01/16/24
Date of Discharge: 01/18/24
-
Pending Results: No
Hospital Course
88-year-old female with past medical history of anxiety, pulmonary embolism, anemia, GI bleed, cognitive impairment, arthritis came to the hospital with ambulatory dysfunction which was likely thought was secondary to her severe osteoarthritis.
Imaging of knees and hips were done which was consistent with severe osteoarthritis. Her pain over time continue to improve with pain management along with muscle relaxants. Patient was seen by physical therapy who recommended SNF or long-term
care. Patient also had urinary tract infection which was treated with antibiotics. She also developed mild acute hospital-acquired delirium which over time continue to improve. For her anxiety her sertraline was increased to 75 mg daily. Once
patient mental status continue to improve and she started to feel better, she was then discharged to rehab with instructions to follow-up with all her physician outpatient.
Discharge Plan
-
Patient Disposition: Shelter/SNF
Discharge Diagnosis/Procedures: Ambulatory dysfunction secondary to arthritis
Hospital-acquired delirium
Urinary tract infection
Anxiety
Condition: Fair
Diet: As tolerated
Activity: With assistance and As tolerated
Driving Restrictions: Not until seen by your Dr
Bathing Restrictions: None
Activity Restrictions/Additional Instructions:
Wound Care Instructions
Bilateral groin wounds-clean with santos wipe or Vashe wound cleanser (SPD), antifungal ointment bid, tuck non woven gauze, change bid and prn incontinence.
Sacrum-clean with saline, silicone border foam, change q 3 days and prn loosened dressing.
Air mattress
Turning schedule
Elevate heels off bed with pillow/s.
Pressure redistributing chair cushion (i.e. Air chair cushion).
Make appointment with podiatist or callus and toenail care.
Consider proposal writer appointment for L facial cheek skin lesion.
Follow up with wound rental boats caretaker or at wound care center call for an appointment.
Referrals:
Ryan Acharya, DO [Family Provider] - in less than 1 week
Prescriptions:
New
Critic-Aid Clear AF(miconazol) 2 % Ointment
1 applic topical BID Qty: 1200 0RF
lidocaine [LMX 4] 4 % Cream
1 applic topical DAILY Qty: 25 0RF
Rx Instructions:
apply to b/l Knees
Continued
ferrous sulfate 325 MG tablet,delayed release (DR/EC)
325 mg PO MOWEFR
acetaminophen 650 mg Tablet Extended Release
1,300 mg PO BID
cyanocobalamin (vitamin B-12) [Vitamin B-12] 500 mcg Tablet
2,500 mcg PO DAILY
calcium carbonate 500 mg calcium (1,250 mg) Tablet
500 mg PO HS
docusate sodium 100 mg Tablet
100 mg PO HS
Eliquis 5 mg Tablet
2.5 mg PO BID
ascorbic acid (vitamin C) [Vitamin C] 500 MG tablet
1,000 mg PO DAILY
zinc sulfate 50 mg zinc (220 mg) Tablet
50 mg PO DAILY
baclofen 5 mg tablet
2.5 mg PO BID
Glucosamine Chondroitin 550-30-1 mg Capsule
2 cap PO DAILY
pantoprazole 40 MG tablet,delayed release (DR/EC)
40 mg PO HS
Changed
sertraline 50 mg tablet
75 mg PO HS Qty: 0 0RF
Discharge Orders:
Discharge Patient (As Directed); Ordered 01/18/24
Ordered By: George Clemente
Discharge Date and Time
Discharge Date/Time: 01/18/24 17:34
Print Language: BANGLADESHI
--- NOTE | 2024-01-18 13:00 | CM ---
CM spoke with Isa from [facility], able to offer patient bed. CM called and spoke with patients daughter, Fadumo, discussed [facility] can accept patient today. Family agreeable, CM confirmed with family that patient is for short term rehab at
this time, family confirms. IMM reviewed over phone, placed in chart. Patient will need ambulance transport. [facility] requesting Covid test, update to Hospitalist and nurse. Update to Valery with [employer] that patient is able to discharge to [facility] today. CM will continue to follow for all discharge planning needs.
Plan; [facility] SNF through [facility] waiver program, will need ambulance transport.
[facility] SNF:
Report: [phone]
[2024-01-18 13:52] LABS: COVID-19 Antigen Negative (Negative)
--- NOTE | 2024-01-18 14:51 | PTCARENOTE ---
Report given to RN at [facility]. Ambulance machine pecan picker time scheduled for 5pm.
[2024-01-18 15:50] VITALS: BP 179/86
--- NOTE | 2024-01-18 16:35 | PTCARENOTE ---
Revision to last note - report called to [facility]. Awaiting transport.
== END 2024-01-18 17:34 | DRG 690 ==
LOC: 4 EAST ACU 09:28
PROVIDERS: Emergency Medicine; Internal Medicine; Physician Assistant; ADMITTING PHYSICIAN Internal Medicine; ATTENDING PHYSICIAN Internal Medicine; EMERGENCY PHYSICIAN Emergency Medicine; FAMILY PHYSICIAN Family Medicine
DX: N39.0 Urinary tract infection, site not specified (principal); F03.94 Unspecified dementia, unspecified severity, with anxiety; F05 Delirium due to known physiological condition; M19.90 Unspecified osteoarthritis, unspecified site; K59.00 Constipation, unspecified; D64.9 Anemia, unspecified; Z66 Do not resuscitate; L89.152 Pressure ulcer of sacral region, stage 2; Z11.52 Encounter for screening for COVID-19
CPT/HCPCS: 73521; 73564; 80048; 80053; 81003; 81015; 85025; 87070; 87086; 87811; 93005; 97110; 97167; 97530; 97535; 99285